=== PATIENT | female | born 1960 | race Caucasian/White ===

== ENCOUNTER 2020-06-02 03:17 | Emergency (ER) | payer SELFPAY ==
[~2020-06-02] VITALS: Ht 157.5 cm; Wt 63.0 kg
[~2020-06-02 03:17] MED LIST: IBUP100T7 PO
--- NOTE | 2020-06-02 03:28 | NUR ---
PT REPORTS COMING INTO ED TODAY FOR LOW BACK PAIN, AN ANXIETY ATTACK FRIDAY AND DIARRHEA TODAY. PT REPORTS GOING TO THE BATHROOM EVERY 30 MINUTES TONIGHT, AND REPORTS THEY ARE ALL BRIGHT RED BLOOD, PT REPORTS LOW ABDOMINAL PAIN ON THE LEFT SIDE ON AND OFF THE LAST COUPLE DAYS. PT REPORTS LIGHT HEADED AND DIZZINESS LAST FRIDAY. PT STATES IT WORSENS WHEN SHE STANDS UP AND MOVES AROUND MAEVE LAWLER AT BS. PT PLACED ON SPO2/BP/ECG MONITORING. WCTM.
[2020-06-02 04:00] LABS: BASOPHILS % (AUTO) 1 % (0-1); EOSINOPHILS % (AUTO) 6 % (1-7); LYMPHOCYTES % (AUTO) 39 % (22-44); MEAN CORPUSCULAR HEMOGLOBIN 31.4 pg (27.0-34.8); MEAN CORPUSCULAR HGB CONC 34.4 g/dL (32.4-35.8); MEAN PLATELET VOLUME 7.1 fL (7.4-10.4); MONOCYTES % (AUTO) 10 % (2-9); NEUTROPHILS % (AUTO) 43 % (42-75); PLATELET COUNT 374 x10^3/uL (130-400); RED BLOOD COUNT 4.94 x10^6/uL (3.82-5.3); RED CELL DISTRIBUTION WIDTH 13.3 % (9.6-15.2)
[2020-06-02] MEDS ORDERED: SODIUM CHLORIDE FLUSH 10ML SYR IVF ONE (04:00)
[2020-06-02 04:01] LABS: MD NO
[2020-06-02 04:12] LABS: ALBUMIN 4.7 g/dL (3.4-5.0); ANION GAP 7 mmol/L (5-15); CALCIUM 9.3 mg/dL (8.5-10.1); CHLORIDE 111 mmol/L (98-107)
[2020-06-02 04:16] LABS: ALANINE AMINOTRANSFERASE 40 U/L (12-78); ALKALINE PHOSPHATASE 97 U/L (45-117); BILIRUBIN,TOTAL 0.5 mg/dL (0.2-1.0); CREATININE 0.63 mg/dL (0.55-1.02); TOTAL PROTEIN 8.4 g/dL (6.4-8.2)
[2020-06-02 04:30] LABS: MICROSCOPIC AUTO
--- NOTE | 2020-06-02 04:31 | NUR ---
pt assisted to restroom via wheelchair, smooth transfer with rn stand by assist, ua walked to lab, pt significant other at bs, nad, appears comfortable, provided warm blankets, bed in lowest, call light on lap, wctm. waiting for ct.
[2020-06-02] MEDS ORDERED: OMNIPAQUE 350 MG/ML, 100ML BOTTLE ONE (04:54)
--- NOTE | 2020-06-02 05:04 | NUR ---
PT RESTING COMFORTABLY ON G[place], NAD, WAITING FOR CT RESULTS, PT DENIES ADDITIONAL QUESTIONS OR NEEDS AT THIS TIME. WCTM.
[2020-06-02 05:55] VITALS: BP 120/77
--- NOTE | 2020-06-02 05:56 | NUR ---
Patient/SPOUSE given discharge instructions and they have confirmed that they understand the instructions. Patient ambulatory with steady gait. NAD, DENIES ADDITIONAL QUESTIONS OR NEEDS. NO PT PERSONAL BELONGINGS LEFT IN ROOM AFTER DC.
== END 2020-06-02 05:57 | disposition home or self-care (01) ==
LOC: ED 05:15
DX: N30.00 Acute cystitis without hematuria (principal); K62.5 Hemorrhage of anus and rectum; M54.41 Lumbago with sciatica, right side; M54.42 Lumbago with sciatica, left side; K62.89 Other specified diseases of anus and rectum; K21.9 Gastro-esophageal reflux disease without esophagitis; F17.290 Nicotine dependence, other tobacco product, uncomplicated
CPT/HCPCS: 36415; 74177; 80053; 81001; 83605; 85025; 86850; 86900; 87077; 87086; 99285; Q9967; 87186